=== PATIENT | male | born 1945 | race Hispanic/Latino ===

== ENCOUNTER 2020-08-04 14:23 | Outpatient (CLI) | payer MEDICARE ==
[~2020-08-04 14:23] MED LIST: Iopamidol 370 76% 100 ML VIAL ONE
--- NOTE | 2020-08-04 15:09 | CT ---
CT of thebrain with and without IV contrast: 08/04/2020 COMPARISON:None available HISTORY:Left temporal headache TECHNIQUE: Serial axial CT imaging at5 mm intervals from thevertex through skull base with and withou t IV contrast. Findings:The noncontrast enhanced imaging demonstrates no intracranial hemorrhage, midline shift, mas s effect, or ventricular enlargement. The imaged paranasal sinuses and mastoid air cells appear well-aerated. No displaced calvarial fractu re is noted. The postcontrast imaging is not tailored to evaluate the arterial structures. No abnormal enhancement is noted within the brain parenchyma. Impression:No acute findings.
== END 2020-08-04 14:24 | disposition home or self-care (01) ==
LOC: BICCT 14:23
PROVIDERS: ATTEND Physician Assistant Medical
DX: G44.52 New daily persistent headache (NDPH) (principal)
CPT/HCPCS: 70470; 82565; Q9967